=== PATIENT | female | born 1965 | race Two or more races ===

== ENCOUNTER → 2024-05-08 | Outpatient (CLI) | payer MEDICARE, MEDICAID, SELFPAY ==
[2024-05-08 09:31] LABS: Misc Send Out* See Sep Rpt
== END | disposition home or self-care (01) ==
PROVIDERS: PCP Family Medicine; Referring Provider Internal Medicine Hematology & Oncology; Visit Provider Internal Medicine Hematology & Oncology
DX: C50.111 Malignant neoplasm of central portion of right female breast (principal)

== ENCOUNTER 2024-07-22 15:02 | Outpatient (RCR) | payer MEDICARE, MEDICAID, SELFPAY | END 2024-08-17 23:59 | disposition home or self-care (01) | LOC: SCTC 15:02 | PROVIDERS: PCP Physician Assistant; Referring Provider Physician Assistant; Visit Provider Internal Medicine Hematology & Oncology | DX: C50.111 Malignant neoplasm of central portion of right female breast (principal); Z17.0 Estrogen receptor positive status [ER+]; Z17.21 Progesterone receptor positive status; Z17.32 Human epidermal growth factor receptor 2 negative status; Z90.11 Acquired absence of right breast and nipple; Z92.21 Personal history of antineoplastic chemotherapy; Z92.3 Personal history of irradiation; Z79.810 Long term (current) use of selective estrogen receptor modulators (SERMs) | CPT/HCPCS: 99213; G0463 ==

== ENCOUNTER → 2024-10-02 | Outpatient (CLI) | payer MEDICARE, MEDICAID, SELFPAY ==
--- NOTE | 2024-10-02 14:00 | XR_ITS ---
Examination: MRI brain with intravenous contrast TECHNIQUE: Multiple axial sagittal coronal MRI brain images post intravenous administration 17 cc gadolinium Exam date and time: October 02, 2024 at 1425 hours INDICATIONS: Diagnosis malignant neoplasm central portion right female breast, patient has headaches numbness dizziness weakness in the legs beginning 2023 FINDINGS: Ventricles are not enlarged No mass effect upon the ventricular system No effacement cortical sulcal markings No midline shift of the ventricles No abnormal enhancing cerebellar or cerebral lesions Pituitary is not enlarged No pituitary macroadenoma IMPRESSION: No abnormal enhancing cerebellar or cerebral lesions
== END | disposition home or self-care (01) ==
LOC: SMRI 13:41
PROVIDERS: PCP Family Medicine; Referring Provider Internal Medicine Hematology & Oncology; Visit Provider Internal Medicine Hematology & Oncology
DX: C50.111 Malignant neoplasm of central portion of right female breast (principal)
CPT/HCPCS: 70552; A9579

== ENCOUNTER 2024-10-22 14:55 | Outpatient (RCR) | payer MEDICARE, MEDICAID, SELFPAY ==
--- NOTE | 2024-10-27 20:28 | CTCFLWUP_ITS ---
Patient: SHARONDA RIVERA : 1965 Page 5 of 6 FOLLOW UP NOTE DATE OF SERVICE: 10/22/2024 NAME: SHARONDA RIVERA ACCOUNT: [id number] : 1965 AGE: 58 INTERVAL HISTORY: ONCOLOGY HISTORY:?[facility] Hx? 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 S/p TCH chemotherapy in the adjuvant setting. 07/25/2019: Patient is started on antihormonal therapy. She was not able to tolerate anastrozole, Aromasin. Currently patient is on tamoxifen. Chronic low back pain with chronic generalized body aches. Currently under pain management around the clinic DATE OF DIAGNOSIS: 09/27/2018 STAGE/TNM: ER/MO positive HER2 positive TREATMENT HISTORY: Care?Plan Start?Date Cycle Day Intent Taxotere,?Carboplatin,?Trastuzumab 02/05/2019 1 21 Curative?(adjuvant) Trastuzumab?6?mg/kg? To?Finish?the?Year 08/08/2019 1 21 Curative?(adjuvant) HISTORY OF PRESENT ILLNESS: Sharonda Rivera is a 59-year-old SPA speaking female with following oncology history 09/05/2018: Patient had bilateral diagnostic digital mammograms. A 12 mm suspicious oval mass with indistinct margins was noted in the right breast. 823 mm, 14 mm well marginated nodules were noted in the left breast. 09/05/2018: Patient had bilateral breast ultrasounds. Left breast ultrasound showed a 2.3 x 2.0 cm solid nodule with lobular margins and another 1.4 x 1.3 cm adjacent solid nodule. Right breast ultrasound showed a 1.2 x 1.7 cm solid nodule with indistinct margins. 09/27/2018: Patient had ultrasound-guided percutaneous right breast retroareolar nodule biopsy. 11/02/2018: Left breast mass fine-needle aspiration was negative for malignancy. 12/05/2018: Right breast wire localized partial mastectomy with sentinel lymph node biopsy 01/03/2019: Margins were reexcised. Residual invasive ductal carcinoma was noted in the medial margin. Ductal carcinoma in situ was also noted. 01/17/2019: PET CT scan was requested. However she was not able to get it done due to chronic low back pain of 23 years duration. 01/30/2019: Echo?LVEF 55-60%. 02/05/2019? 06/13/2019: Patient had 6 cycles of adjuvant TCH chemotherapy. 07/15/2019?09/04/2019: Patient received 6300 cGy radiation to the right breast. 07/25/2019: Patient started on adjuvant anastrozole and Citracal. 02/05/2019?05/07/2020: Ms. Rivera completed total of 1 year of adjuvant Herceptin therapy. 09/26/2018: Anastrozole held due to myalgias and arthralgias and generalized body aches and bone pains. 10/10/2019: Joint pains did not improve after stopping the anastrozole. Patient was restarted on anastrozole. 10/24/2019: Anastrozole discontinued. Patient was started on Aromasin. 10/26/2019: PET CT scan? IMPRESSION: Hypermetabolic pulmonary nodule anterior right upper lobe, 29 x 19 mm. Hypermetabolic anterior right chest wall soft tissue masses, the largest 20 x 8 mm, SUV 2.67. The pulmonary nodule anterior right upper lobe is amenable to CT-guided biopsy as clinically warranted 12/10/2019: CT-guided biopsy of the anterior chest wall pleural-based mass. Pathology showed muscle and small fragments of adipose tissue. No evidence of malignancy. 12/17/2019:Aromasin was discontinued due to persistent body aches on. Patient was started on letrozole. 01/23/2020: Letrozole discontinued due to worsening body aches. 02/05/2020: Patient restarted Aromasin. 03/13/2020: PET CT scan? 08/25/2020: Bone density test? 10/29/2020: MRI of the brain? 09/03/2021: Aromasin discontinued due to worsening body aches as well as joint pains. Patient is started on tamoxifen 20 mg p.o. daily. 11/28/2020: PET CT scan?negative for metastatic disease. November 2020: According to Ms. Rivera she had colonoscopy done in [place]. The study was negative as per patient. 08/25/2021: Left breast biopsy? 01/05/2023: PET/CT scan? 05/14/2024: PET/CT scan?no interval metastatic disease. Para OTHER MEDICAL HISTORY/CONDITIONS: FAMILY HISTORY: ?Clone Family Hx? 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 Arimidex - 1 mg 1 tab Daily 2. gabapentin - 300 mg Three times a day 3. hydrocodone-acetaminophen - 1 tab Every 12 Hours 4. Ward - 1 tab Daily?Palabra Meds? Medications Last Reconciled by Jeana Tamayo MA on 10/22/2024 ALLERGIES: Sulfa (Sulfonamide Antibiotics) REVIEW OF SYSTEMS: A complete 14-point review of systems was performed and is negative except as noted in interval history. PHYSICAL EXAMINATION:?[facility] PE? VITAL SIGNS: Temperature?99, B/P?143/84, Oxygen?Saturation?96% Weight?199?lbs PAIN: 6 - Severe pain ECOG Performance Status: 0 - Asymptomatic and fully active Conjunctiva is pink. Neck is supple. No adenopathy palpable in the neck, axillary and inguinal region. Chest tenderness present in the right breast. CVS rhythm regular. Abdomen is soft. No hepatosplenomegaly noted. Extremities no clubbing or cyanosis. LABORATORY DATA: I have personally reviewed and interpreted each of the patient?s relevant lab tests, abnormal findings are below: Date 10/08/20 ??GLUCOSE,RANDOM?(mg/dL) 99 ??BLOOD?UREA?NITROGEN?(mg/dL) 9 ??CREATININE?(mg/dL) 0.70 ??SODIUM?(mmol/L) 140 ??POTASSIUM?(mmol/L) 3.4 ??CHLORIDE?(mmol/L) 108?H ??CrCl?(CandG)?(ml/min) 106.91 ??AST/SGOT?(Unit/L) 31 ??ALT/SGPT?(Unit/L) 31 ??ALKALINE?PHOSPHATASE?(Unit/L) 90 ??BILIRUBIN,?TOTAL?(mg/dL) 0.6 ??PROTEIN?TOTAL?(gm/dl) 7.2 ??ALBUMIN,?SERUM?(gm/dl) 4.8 ??GLOBULIN?(gm/dl) 2.4 ??ALBUMIN/GLOBULIN?RATIO 2.0 ??CALCIUM,?SERUM?(mg/dL) 9.6 ??CALCIUM?SERUM?(CORRECTED)?(mg/dL) 9.6 ASSESSMENT/PLAN:?Jared Angel Assessment/Plan? Stage IA (pT1C, N0, cM0), ER positive, MO positive, HER-2/jigna ER positive, MO positive, [id number] overexpressed'?iEh-grade single focus invasive ductal carcinoma of right breast. Patient had lumpectomy and sentinel lymph node biopsies. Status post 6 cycles of TCH chemotherapy and radiation therapy to the right breast. Patient completed adjuvant Herceptin therapy on 05/07/2020. PET/CT scan negative for metastatic disease. BRCA [address] [facility] hereditary cancer test were drawn recently. Results are pending. Currently the patient is on tamoxifen. 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 Patient had BRCA negative Recent mammogram and ultrasound reviewed with the patient and were both negative Will repeat in 6 months Advised lymphedema massage Patient has a very dry breast and advised to moisturize regularly Advised to take calcium and vitamin D3 Discussed with patient that anastrozole has shown better efficacy in preventing breast ancer Received tamoxifen for 3 years Patient was switched to anastrozole and tolerating well Patient have intact uterus and is at a high risk of endometrial hyperplasia Extensive counseling done regarding side effects Continue calcium and vitamin D3 1. ORDERS: Mammogram and DEXA scan RETURN TO CLINIC: I will see her back in the clinic in 6 month. Textage p , , clVlU), BILLING AND COMPLIANCE: I reviewed external records from providers outside my specialty as summarized above. I spent a total of 50 minutes on this patient?s care on the day of their visit excluding time spent related to any billed procedures. This time includes time spent with the patient as well as time spent documenting in the medical record, reviewing patients records and tests, obtaining history, placing orders, communicating with other healthcare professionals, counseling the patient, family or caregiver, and/or care coordination for the diagnoses above. Electronically Signed by: Ralph Angel MD T: 8:26 PM CC: PCP: Renan Plummer Referring: Renan Plummer This document was completed utilizing speech recognition software. Grammatical errors, random word insertions, pronoun errors, and incomplete sentences are an occasional consequence of this system due to software limitations, ambient noise, and hardware issues. Any formal questions or concerns about the content, text or information contained within the body of this dictation should be directly addressed to the provider for clarification.
== END 2024-11-15 23:59 | disposition home or self-care (01) ==
LOC: SCTC 14:55
PROVIDERS: PCP Family Medicine; Referring Provider Family Medicine; Visit Provider Nurse Practitioner Family
DX: C50.111 Malignant neoplasm of central portion of right female breast (principal); Z17.0 Estrogen receptor positive status [ER+]; Z17.21 Progesterone receptor positive status; Z17.32 Human epidermal growth factor receptor 2 negative status; Z90.11 Acquired absence of right breast and nipple; Z92.21 Personal history of antineoplastic chemotherapy; Z92.3 Personal history of irradiation; I89.0 Lymphedema, not elsewhere classified; Z79.811 Long term (current) use of aromatase inhibitors
CPT/HCPCS: 99212; G0463

== ENCOUNTER → 2025-06-25 | Outpatient (CLI) | payer MEDICARE, MEDICAID, SELFPAY ==
--- NOTE | 2025-06-25 11:00 | XR_ITS ---
Examination: Screening digital mammography, bilateral Computer aided detection 3-D breast Tomosynthesis, bilateral Date and time of exam: June, 11:01 a.m., compared to mammograms dated July 20, 2022 Indication: Screening Technique: Nonmagnified MLO, CC views of the breasts to been obtained, reconstructed from 3-D Tomosynthesis images. R2 computer aided detection program utilized for evaluation of suspicious masses and/or abnormal calcifications. 3-D Tomosynthesis images obtained. Findings: Scattered areas of fibroglandular density. Stable architectural distortion and surgical clips right breast Stable nodules with 1 breast biopsy marker upper left breast Impression: BI-RADS category II: Benign Findings. Recommend 1 year follow-up mammogram.
== END | disposition home or self-care (01) ==
LOC: CDIM 10:47
PROVIDERS: Referring Provider Internal Medicine Hematology & Oncology; Visit Provider Internal Medicine Hematology & Oncology
DX: Z12.31 Encounter for screening mammogram for malignant neoplasm of breast (principal); R92.323 Mammographic fibroglandular density, bilateral breasts; C50.111 Malignant neoplasm of central portion of right female breast
CPT/HCPCS: 77063; 77067

== ENCOUNTER → 2025-06-30 | Outpatient (CLI) | payer MEDICARE, MEDICAID, SELFPAY ==
--- NOTE | 2025-06-30 12:20 | XR_ITS ---
Examination: Bone densitometry Date and time of exam: June 30, 2025, 1211 hours INDICATIONS: Menopause age 53 vitamin D and calcium 5 years Technique: Lumbar spine and hip total bone mineralization values of an calculated. Peak reference and age match control results have been displayed. Findings: Lumbar spine total bone mineralization is 25 7 gm/cm2. This is 1.7 standard deviations below peak reference. This is 0.5 standard deviations below age-matched controls. Hip total bone mineralization is 0.878 gm/cm2 This is 0.6 standard deviations below peak reference. This is 0.2 standard deviations above age-matched controls Impression: There is osteopenia based on lumbar spine measurements. There is normal mineralization based on hip measurements Lumbar mineralization is decreased 6.0% compared with June 29, 2023 Hip mineralization is decreased 1.0% compared with June 29, 2023
== END | disposition home or self-care (01) ==
LOC: CDIM 11:48
PROVIDERS: Referring Provider Internal Medicine Hematology & Oncology; Visit Provider Internal Medicine Hematology & Oncology
DX: M85.89 Other specified disorders of bone density and structure, multiple sites (principal); C50.111 Malignant neoplasm of central portion of right female breast
CPT/HCPCS: 77080

== ENCOUNTER 2025-07-17 11:40 | Outpatient (RCR) | payer MEDICARE, MEDICAID, SELFPAY ==
--- NOTE | 2025-08-04 06:15 | CTCFLWUP_ITS ---
Patient: SHARONDA RIVERA : 1965 Page 5 of 7 FOLLOW UP NOTE DATE OF SERVICE: 07/17/2025 NAME: SHARONDA RIVERA ACCOUNT: [id number] : 1965 AGE: 59 INTERVAL HISTORY: Patient with a triple positive breast cancer. Patient had her bone density on 06/30/2025 which showed osteopenia in the lumbar spine and bone density has decreased in both lumbar spine and hips. Mammogram completed on 06/25/2020 was BI-RADS 2 and recommended follow-up in 1 year. Patient do not have any new complaints. She was unable to tolerate tamoxifen or anastrozole and is changed to exemestane at this visit. Patient is complaining of headache on and off. Ordered MRI to evaluate for metastatic disease ONCOLOGY HISTORY:?[facility] Hx? 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 S/p TCH chemotherapy in the adjuvant setting. 07/25/2019: Patient is started on antihormonal therapy. She was not able to tolerate anastrozole, Aromasin. Currently patient is on tamoxifen. Chronic low back pain with chronic generalized body aches. Currently under pain management . DATE OF DIAGNOSIS: 09/27/2018 STAGE/TNM: ER/MN positive HER2 positive TREATMENT HISTORY: Care?Plan Start?Date Cycle Day Intent Taxotere,?Carboplatin,?Trastuzumab 02/05/2019 1 21 Curative?(adjuvant) Trastuzumab?6?mg/kg? To?Finish?the?Year 08/08/2019 1 21 Curative?(adjuvant) HISTORY OF PRESENT ILLNESS: Sharonda Rivera is a 59-year-old SPA speaking female with following oncology history 09/05/2018: Patient had bilateral diagnostic digital mammograms. A 12 mm suspicious oval mass with indistinct margins was noted in the right breast. 823 mm, 14 mm well marginated nodules were noted in the left breast. 09/05/2018: Patient had bilateral breast ultrasounds. Left breast ultrasound showed a 2.3 x 2.0 cm solid nodule with lobular margins and another 1.4 x 1.3 cm adjacent solid nodule. Right breast ultrasound showed a 1.2 x 1.7 cm solid nodule with indistinct margins. 09/27/2018: Patient had ultrasound-guided percutaneous right breast retroareolar nodule biopsy. 11/02/2018: Left breast mass fine-needle aspiration was negative for malignancy. 12/05/2018: Right breast wire localized partial mastectomy with sentinel lymph node biopsy 01/03/2019: Margins were reexcised. Residual invasive ductal carcinoma was noted in the medial margin. Ductal carcinoma in situ was also noted. 01/17/2019: PET CT scan was requested. However she was not able to get it done due to chronic low back pain of 23 years duration. 01/30/2019: Echo?LVEF 55-60%. 02/05/2019? 06/13/2019: Patient had 6 cycles of adjuvant TCH chemotherapy. 07/15/2019?09/04/2019: Patient received 6300 cGy radiation to the right breast. 07/25/2019: Patient started on adjuvant anastrozole and Citracal. 02/05/2019?05/07/2020: Ms. Rivera completed total of 1 year of adjuvant Herceptin therapy. 09/26/2018: Anastrozole held due to myalgias and arthralgias and generalized body aches and bone pains. 10/10/2019: Joint pains did not improve after stopping the anastrozole. Patient was restarted on anastrozole. 10/24/2019: Anastrozole discontinued. Patient was started on Aromasin. 10/26/2019: PET CT scan? IMPRESSION: Hypermetabolic pulmonary nodule anterior right upper lobe, 29 x 19 mm. Hypermetabolic anterior right chest wall soft tissue masses, the largest 20 x 8 mm, SUV 2.67. The pulmonary nodule anterior right upper lobe is amenable to CT-guided biopsy as clinically warranted 12/10/2019: CT-guided biopsy of the anterior chest wall pleural-based mass. Pathology showed muscle and small fragments of adipose tissue. No evidence of malignancy. 12/17/2019:Aromasin was discontinued due to persistent body aches on. Patient was started on letrozole. 01/23/2020: Letrozole discontinued due to worsening body aches. 02/05/2020: Patient restarted Aromasin. 03/13/2020: PET CT scan? 08/25/2020: Bone density test? 10/29/2020: MRI of the brain? 09/03/2021: Aromasin discontinued due to worsening body aches as well as joint pains. Patient is started on tamoxifen 20 mg p.o. daily. 11/28/2020: PET CT scan?negative for metastatic disease. November 2020: According to Ms. Rivera she had colonoscopy done in [place]. The study was negative as per patient. 08/25/2021: Left breast biopsy? 01/05/2023: PET/CT scan? 05/14/2024: PET/CT scan?no interval metastatic disease. Para OTHER MEDICAL HISTORY/CONDITIONS: FAMILY HISTORY: ?Clone Family Hx? 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 exemestane - 25 mg 1 tab Daily 2. gabapentin - 300 mg Three times a day 3. hydrocodone-acetaminophen - 1 tab Every 12 Hours 4. Dudley - 1 tab Daily 5. ondansetron HCl - 8 mg 1 tab 1 tab can be taken every 8 hrs as needed for nause?Palabra Meds? Medications Last Reconciled by Jeana Rowley MD on 07/17/2025 ALLERGIES: Sulfa (Sulfonamide Antibiotics) REVIEW OF SYSTEMS: A complete 14-point review of systems was performed and is negative except as noted in interval history. PHYSICAL EXAMINATION:?[facility] PE? VITAL SIGNS: Temperature?98.5, B/P?148/81, Oxygen?Saturation?97% Weight?206?lbs PAIN: 0 - No pain Conjunctiva is pink. Neck is supple. No adenopathy palpable in the neck, axillary and inguinal region. Chest tenderness present in the right breast. CVS rhythm regular. Abdomen is soft. No hepatosplenomegaly noted. Extremities no clubbing or cyanosis. LABORATORY DATA: I have personally reviewed and interpreted each of the patient?s relevant lab tests, abnormal findings are below: Date 08/04/20 10/08/20 08/04/25 ??WHITE?BLOOD?COUNT?(Thou/mm3) ? ? 6.8 ??RED?BLOOD?COUNT?(Miln/mm3) ? ? 4.93 ??HEMOGLOBIN?(gm/dl) ? ? 14.8 ??HEMATOCRIT?(%) ? ? 42.1 ??PLATELET?COUNT?(Thou/mm3) ? ? 201 ??NEUTROPHILS?%,?AUTO?(%) ? ? 69 ??LYMPH?%,?AUTO?(%) ? ? 23 ??NEUTROPHILS,?AUTO?(Thou/mm3) ? ? 4.7 ??GLUCOSE,RANDOM?(mg/dL) 99 99 122?H ??BLOOD?UREA?NITROGEN?(mg/dL) 12 9 17 ??CREATININE?(mg/dL) 0.80 0.70 0.80 ??SODIUM?(mmol/L) 142 140 142 ??POTASSIUM?(mmol/L) 3.3?L 3.4 3.6 ??CHLORIDE?(mmol/L) 109?H 108?H 105 ??CrCl?(CandG)?(ml/min) 93.54 106.91 91.79 ??AST/SGOT?(Unit/L) 14 31 22 ??ALT/SGPT?(Unit/L) 10 31 26 ??ALKALINE?PHOSPHATASE?(Unit/L) 80 90 85 ??BILIRUBIN,?TOTAL?(mg/dL) 0.6 0.6 0.5 ??PROTEIN?TOTAL?(gm/dl) 6.8 7.2 6.9 ??ALBUMIN,?SERUM?(gm/dl) 4.7 4.8 4.9 ??GLOBULIN?(gm/dl) 2.1?L 2.4 2.0?L ??ALBUMIN/GLOBULIN?RATIO 2.2 2.0 2.5?H ??CALCIUM,?SERUM?(mg/dL) 9.9 9.6 9.7 ??CALCIUM?SERUM?(CORRECTED)?(mg/dL) 9.9 9.6 9.7 ASSESSMENT/PLAN:?Jared Angel Assessment/Plan? Stage IA (pT1C, N0, cM0), ER positive, MN positive, HER-2/jigna ER positive, MN positive, [id number] overexpressed'?iEh-grade single focus invasive ductal carcinoma of right breast. Patient had lumpectomy and sentinel lymph node biopsies. Status post 6 cycles of TCH chemotherapy and radiation therapy to the right breast. Patient completed adjuvant Herceptin therapy on 05/07/2020. PET/CT scan negative for metastatic disease BRCA 1 and 2 and [facility] hereditary cancer test were drawn recently. Results are pending. Currently the patient is on tamoxifen. 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 Patient had BRCA negative Recent mammogram and ultrasound reviewed with the patient and were both negative Will repeat in 6 months Advised lymphedema massage Patient has a very dry breast and advised to moisturize regularly Advised to take calcium and vitamin D3 Was changed from tamoxifen to anastrozole but unable to hold it so switched to exemestane continue calcium and vitamin D3 As patient is complaining of headache will do MRI brain to evaluate for metastatic disease ORDERS: Order # Description [id number] Comprehensive Metabolic Panel - 12 + CBC with Auto Diff + MD Follow Up [id number] 3D Mammogram Screening + Bilateral [id number] DXA L-Spine and Hip [id number] MD Follow Up 4 Week [id number] MRI + Brain + With Contrast RETURN TO CLINIC: I reviewed the diagnosis, prognosis, and recommended treatment/procedure options with the patient (and/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 We also discussed the option of no treatment and the possibility of clinical trial participation, if applicable. All questions were addressed, and they demonstrated understanding. They provided informed consent to proceed with the proposed plan of care. BILLING AND COMPLIANCE: I reviewed external records from providers outside my specialty as summarized above. I spent a total of 50 minutes on this patient?s care on the day of their visit excluding time spent related to any billed procedures. This time includes time spent with the patient as well as time spent documenting in the medical record, reviewing patients records and tests, obtaining history, placing orders, communicating with other healthcare professionals, counseling the patient, family or caregiver, and/or care coordination for the diagnoses above. Electronically Signed by: Ralph Angel MD T: 6:13 AM CC: PCP: Renan Plummer Referring: Ralph Angel This document was completed utilizing speech recognition software. Grammatical errors, random word insertions, pronoun errors, and incomplete sentences are an occasional consequence of this system due to software limitations, ambient noise, and hardware issues. Any formal questions or concerns about the content, text or information contained within the body of this dictation should be directly addressed to the provider for clarification.
== END 2025-07-18 23:59 | disposition home or self-care (01) ==
LOC: SCTC 11:40
PROVIDERS: PCP Family Medicine; Referring Provider Internal Medicine Hematology & Oncology; Visit Provider Internal Medicine Hematology & Oncology
DX: C50.111 Malignant neoplasm of central portion of right female breast (principal); Z17.410 Hormone receptor positive with human epidermal growth factor receptor 2 positive status; Z90.11 Acquired absence of right breast and nipple; Z92.21 Personal history of antineoplastic chemotherapy; Z92.3 Personal history of irradiation; R51.9 Headache, unspecified; I89.0 Lymphedema, not elsewhere classified; Z79.811 Long term (current) use of aromatase inhibitors
CPT/HCPCS: 99212; G0463

== ENCOUNTER 2025-07-29 12:55 | Emergency (ER) | payer MEDICARE, MEDICAID, SELFPAY ==
[2025-07-29 13:09] VITALS: BP 145/85; PULSE 71; RESP 18; TEMP 36.8; O2SAT 96; BMI 31.0
--- NOTE | 2025-07-29 13:31 | XR_ITS ---
Examination: Foot, right, 3 views Technique: AP, oblique, lateral views foot, 3 views Date and time of exam: July 29, 2025, 1336 hours INDICATION: Right foot pain 3 months FINDINGS: Mild narrowing first metatarsophalangeal joint No fracture Mild osteoarthritis interphalangeal joint first digit No cortical bone destruction Small plantar posterior bony calcaneal spurs IMPRESSION: Mild osteoarthritis first digit Small plantar posterior bony calcaneal spurs
--- NOTE | 2025-07-29 13:31 | XR_ITS ---
Examination: Duplex scan of the lower extremity, unilateral right Date and time of exam: July 29, 2025, 1350 hours INDICATIONS: Right leg pain beginning 3 months ago Technique: Duplex scan of the extremity veins using B-mode/grayscale imaging and Doppler spectral analysis and color flow Attention is directed to internal echogenicity, compression and augmentation involving these veins, color flow assessment, spectral analysis Findings: Major deep venous structures in the extremity demonstrate normal course and caliber. There is no evidence of deep vein thrombosis. Normal color flow and spectral analysis Impression: Negative for DVT..
[2025-07-29] MEDS: KETOROLAC INJ 30 MG/ML VIAL IM (14:02)
--- NOTE | 2025-07-29 15:38 | EDNOTE_ITS ---
<Statement entered by Caron Pimentel MD - 07/29/25 16:28> As co-signing physician, I was present and available for consult prn. I concur with the plan and care as documented by the midlevel provider. Lower Extremity Injury RME/HPI General Chief Complaint: Extremity Injury, Lower Stated Complaint: right lower leg pain x 3 months worse every day Time Seen by Provider: 07/29/25 13:23 Arrival date/time: 07/29/25 12:55 59-year-old female presents to the Emergency Department for complaints of right heel pain patient reports onset of symptoms approximate 3 months ago patient reports no fever nausea or vomiting no swelling of extremity Limitations: no limitations Related Data Home Medications ?Medication ?Instructions ?Recorded ?Confirmed escitalopram oxalate 10 mg tablet 10 mg PO QDAY 12/10/19 (Lexapro) exemestane 25 mg tablet 25 mg PO 12/09/19 gabapentin 100 mg capsule 100 mg PO TID 12/09/1912/09 Previous Rx's ?Medication ?Instructions ?Recorded hydrocodone 5 mg-acetaminophen 325 1 tab PO Q6H PRN pa in (scale score 04/20/19 mg tablet ([place]) 7-10) #15 tabs cyclobenzaprine 5 mg tablet 5 mg PO TID PRN muscle spa sm #21 09/19/21 tabs ibuprofen 800 mg tablet 800 mg PO TID PRN pain #30 t abs 09/19/21 methylprednisolone 4 mg tablets in 4 mg PO QDAY #21 ta bs 09/19/21 a dose pack (Medrol (Zhao)) meloxicam 7.5 mg tablet 7.5 mg PO QDAY 7 days #7 tab s 07/29/25 Allergies Allergy/AdvReac Type Severity Reaction Status Date / Time sulfamethoxazole (From Allergy Intermediate Swelling Verified 07/29/25 13:02 Bactrim) of Lip/Tongue/Throat trimethoprim (From Bactrim) Allergy Intermediate Swelling Verified 07/29/25 13:02 of Lip/Tongue/Throat Review of Systems Review of Systems Systems Reviewed: All systems reviewed, normal except as documented Constitutional Constitutional: Reports system reviewed and no additional complaints, except as documented, Denies fever(s) and Denies headache(s) Eyes Eyes: Reports system reviewed and no additional complaints, except as documented and Denies blurry vision ENT Ears, Nose, Mouth, and Throat: Reports system reviewed and no additional complaints, except as documented, Denies headache(s), Denies nasal congestion and Denies nasal discharge Cardiovascular Cardiovascular: Reports system reviewed and no additional complaints, except as documented, Denies chest pain and Denies dyspnea Respiratory Respiratory: Reports system reviewed and no additional complaints, except as documented, Denies chest congestion, Denies cough and Denies dyspnea Gastrointestinal Gastrointestinal: Reports system reviewed and no additional complaints, except as documented and Denies abdominal pain Musculoskeletal Musculoskeletal: Reports system reviewed and no additional complaints, except as documented, Reports abnormal gait, Reports arthralgias, Denies deformity, Denies numbness, Reports stiffness and Denies tingling Integumentary/Breasts Skin/Breast: Reports system reviewed and no additional complaints, except as documented and Denies rash Neurologic Neurologic: Reports system reviewed and no additional complaints, except as documented, Reports as per HPI, Reports abnormal gait, Denies headache(s), Denies numbness and Denies tingling Past Medical History Past Medical History NEUROLOGIC: Negative Neurological Disorders or Seizures CARDIAC: Negative Cardiac Disorders, Congestive Heart Failure, Hypertension or Hypotension RESPIRATORY: Negative Chronic Obstructive Pulmonary Disease (COPD), Asthma or Bronchitis GASTROINTESTINAL: Positive Gastrointestinal Disorders, Pancreatitis and Gall Bladder Disease (CHOLECYSTECTOMY 2017); Negative Colorectal Cancer GENITOURINARY: Positive Genitourinary Disorders (UTI(08/2019)); Negative Renal Disease REPRODUCTIVE: Positive Breast Cancer (09/2018) and Previous Pregnancies () MUSCULOSKELETAL: Positive Musculoskeletal Disorders and Arthritis; Negative Bone Cancer or Carpal Tunnel Syndrome ENDOCRINE: Negative Endocrine Disorders, Diabetes Mellitus Type 1 or Diabetes Mellitus Type 2 HEMATOLOGIC: Positive Blood Disorders and Anemia (DURING CHEMO-RECEIVED IRON SUPPLEMENTS); Negative Sickle Cell Disease PSYCHO/SOCIAL: Positive Depression OTHER HISTORY: Positive Hospitalization, Chemotherapy, Radiation Therapy and Breast Cancer (09/2018); Negative Autoimmune Disease, Falls, Blood Transfusions, Blood Transfusion Reaction, Anesthesia Reactions, Organ Transplant, MRSA, VRSA, Clostridium Difficile, Cervical Cancer, Colorectal Cancer, Lung Cancer or Ovarian Cancer Family History FAMILY HISTORY: Positive Family Cardiac Disorders (FATHER) and Family Cancer (FATHER(PROSTATE)); Negative Family Psychiatric Problems, Family Respiratory Disorders, Family Soham rointestinal Problems, Family Surgery or Family Anesthesia Reaction Surgical History SURGICAL: Positive Lumpectomy (RIGHT BREAST) and Section (X3); Negative Cardiac Surgery, Endocrine Surgery, Ear Surgery, Joint Replacement, Amputation, Open Reduction Internal Fixation, Arthroscopy, Neurologic Surgery, Tubal Ligation or Organ Transplant Social History SMOKING STATUS: Never smoker ED Exam General Limitations: Present no limitations General appearance: Present alert and in no apparent distress Head Head exam: Present atraumatic, normocephalic and normal inspection Eye Eye exam: Present normal appearance, PERRL and EOMI; Absent conjunctival injection ENT ENT exam: Present normal exam, normal oropharynx and mucous membranes moist Neck Neck exam: Present normal inspection, full ROM and trachea midline Chest Chest inspection: Present normal inspection and symmetric chest wall rise Respiratory Respiratory exam: Present normal lung sounds bilaterally Cardiovascular Cardiovascular exam: Present regular rate, normal rhythm and normal heart sounds Abdominal Exam Abdominal exam: Present soft and normal bowel sounds Extremities Exam Extremities exam: Present normal inspection, full ROM, tenderness and normal capillary refill; Absent pedal edema, joint swelling or calf tenderness Back Exam Back exam: Present normal inspection and full ROM Neurological Exam Neurological exam: Present alert, oriented X3 and CN II-XII intact Psychiatric Psychiatric exam: Present normal affect and normal mood Skin Skin exam: Present warm, dry, intact and normal color Course Quality Measures none Orders Category Date Time Status US venous doppler LE RT Stat Exams 07/29/25 13:31 Completed XR foot comp RT min 3V Stat Exams 07/29/25 13:31 Completed Ketorolac Inj [Toradol Inj] Med 07/29/25 13:31 Discontinued 30 mg IM X1 ONE Vital Signs Vital signs: Vital Signs Temperature 98.2 F 07/29/25 13:09 Pulse Rate 71 07/29/25 13:09 Respiratory Rate 18 07/29/25 13:09 Blood Pressure 145/85 H 07/29/25 13:09 Pulse Oximetry (%) 96 07/29/25 13:09 Oxygen Delivery Method Room Air 07/29/25 13:09 O2 saturation 96% on room air within normal limits Extremity Injury, Lower MDM Narrative MDM Narrative:: 59-year-old female presents to the Emergency Department for complaints of right heel pain patient reports onset of symptoms approximate 3 months ago patient reports no fever nausea or vomiting no swelling of extremity on exam patient well-appearing patient does not appear ill or toxic no acute distress Imaging obtained patient has calcaneal spur as well as osteoarthritis of the foot consistent with patient's pain Ultrasound of the extremities obtained no acute emergent findings noted Patient data External records reviewed:: [facility] previous records Clinical information provided by:: patient Social determinants that could affect healthcare access:: none Patient has the following chronic illnesses:: None How is presenting disease/condition affected by chronic disease/condition?: no chronic disease Evaluation data The following diagnostics were reviewed and interpreted by me:: radiology exam(s) Lab and/or radiology exams considered but not ordered:: Radiology obtained Interpretation Summary: Reviewed by me Medications / Prescriptions Medications or Prescriptions considered but not ordered:: Given Medication administrations:: Medication Administration History Discontinued Medications Ketorolac Tromethamine (Ketorolac Inj 30 Mg/Ml Vial) 30 mg IM X1 ONE Stop: 07/29/25 13:32 Last Admin: 07/29/25 14:02 Dose: 30 mg Documented By: MF Given Consultations Consultation(s) initiated? (list below): No Diagnosis Extremity Injury, Lower Differential Diagnosis: other (Foot sprain, foot fracture) Most likely diagnosis given after review of the tests above:: Calcaneal spur Admission Indicated Admission indicated?: not indicated Admission Request Was there a request for admission?: No Disposition Plan Disposition Plan: Discharge Discharge Attestation Discharge Attestation: The patient and all family members were given an opportunity to ask questions and understood the discharge instructions. Discharge instructions specifically effects, indications for sooner follow up or return to the emergency department, and the expected course of current diagnosis. Patient condition: Stable Discharge Plan Plan Patient Disposition: HOME (Self Care) Discharge Disposition comment: Stable Prescriptions/Referrals Prescriptions/Med Rec: New meloxicam 7.5 mg tablet 7.5 mg PO QDAY 7 Days Qty: 7 0RF No Action gabapentin 100 mg Capsule 100 mg PO TID escitalopram oxalate [Lexapro] 10 mg Tablet 10 mg PO QDAY exemestane 25 mg Tablet 25 mg PO hydrocodone-acetaminophen [[place]] 5-325 mg tablet 1 tab PO Q6H MDD 4 tabs PRN (Reason: pain (scale score 7-10)) Qty: 15 0RF cyclobenzaprine 5 mg tablet 5 mg PO TID PRN (Reason: muscle spasm) Qty: 21 0RF ibuprofen 800 mg tablet 800 mg PO TID PRN (Reason: pain) Qty: 30 0RF methylprednisolone [Medrol (Zhao)] 4 mg tablets,dose pack 4 mg PO QDAY Qty: 21 0RF Referrals: Renan Plummer MD [Primary Care Provider, Family Practice] - In 1 week Problem List Clinical Impression: Calcaneal spur, right, Osteoarthritis of foot, right Patient/Caregiver Discharge Instructions Education Materials: ED Heel Spur Additional Instructions: Please follow up with your primary care doctor in the next 24-48hrs for any worsening symptoms return here immediately Print Language: Hungarian Stand Alone Forms: Ana Award Info., Patient Portal Info Letter PA/FITNESS PROFESSIONAL Supervising Physician PA/FITNESS PROFESSIONAL Supervising Physician: Dr. pimentel
== END 2025-07-29 17:15 | disposition home or self-care (01) ==
PROVIDERS: Emergency Provider Emergency Medicine; PCP Family Medicine
DX: M77.31 Calcaneal spur, right foot (principal); M19.071 Primary osteoarthritis, right ankle and foot
CPT/HCPCS: 73630; 93971; 96372; 99283; J1885

== ENCOUNTER 2025-08-04 04:42 | Emergency (ER) | payer MEDICARE, MEDICAID, SELFPAY ==
[2025-08-04 04:48] VITALS: BP 145/103; PULSE 85; RESP 18; TEMP 36.5; O2SAT 98; BMI 31.3
--- NOTE | 2025-08-04 04:51 | XR_ITS ---
Examination: CT abdomen and pelvis without contrast. Coronal 3-D reconstructions. Sagittal 2-D reconstructions. Date and time of exam: August 04, 2025, 0507 hours, comparison PET/CT scan January 05, 2023 INDICATIONS: Epigastric pain abdominal pain nausea today CTDI: vol (mGy): 10 DLP: (mGycm): 662 Technique: Axial images of the abdomen have been obtained, 3 mm slice thickness Intravenous contrast material has not been administered. Low dose protocols were performed. One or more of the following dose reduction techniques were used; automated exposure control, adjustment of the mA and/or KV according to patient size, use of iterative reconstruction technique. Findings: Surgical clips with density in the right breast retroareolar with skin thickening right breast No axillary lymphadenopathy No liver or splenic lesion No pancreatic or adrenal mass Mild to moderate renal scarring, no renal or ureteral calculi, no hydronephrosis Aortic calcification no aneurysmal dilatation. Normal appendix Tiny fat-containing umbilical hernia Scattered colonic diverticulosis, no diverticulitis No pelvic mass Moderate osteopenia IMPRESSION: No acute process in the abdomen or pelvis
--- NOTE | 2025-08-04 04:52 | PD.EDRME ---
Rapid Medical Screening Exam RME Arrival date/time: 08/04/25 04:42 This is a case of 59-year-old female with history of breast cancer and cholecystectomy came in in the emergency room due to abdominal pain radiating to her chest today worsening of the symptoms this patient decided to sought consult here in the emergency room Chief Complaint: Abdominal Pain Time Seen by Provider: 08/04/25 04:51 Vital signs: Vital Signs Temperature 97.7 F 08/04/25 04:48 Pulse Rate 85 08/04/25 04:48 Respiratory Rate 18 08/04/25 04:48 Blood Pressure 145/103 H 08/04/25 04:48 Pulse Oximetry (%) 98 08/04/25 04:48 Oxygen Delivery Method Room Air 08/04/25 04:48 Exam: Abdominal tenderness epigastric area no guarding no rebound no rigidity normal rate regular rhythm no murmur clear with clear breath sounds Clinical Impression: Abdominal pain
[2025-08-04 05:08] LABS: Basophils # (Auto) 0.0 Thou/mm3 (0.0-0.2); Basophils % (Auto) 0 % (0-2.5); Eosinophils # (Auto) 0.1 Thou/mm3 (0.0-0.5); Eosinophils % (Auto) 1 % (0-10); Hematocrit 42.1 % (36.0-46.0); Hemoglobin 14.8 g/dL (12.0-16.0); Immature Granulocytes Auto 0.05 Thou/mm3 (0.00-0.00); Lymphocytes # (Auto) 1.6 Thou/mm3 (1.0-4.8); Lymphocytes % (Auto) 23 % (10-50); Mean Corpuscular HGB Conc 35.2 g/dl (31.0-37.0); Mean Corpuscular Hemoglobin 30.0 pg (25.0-35.0); Mean Corpuscular Volume 85 fL (80-100); Monocytes # (Auto) 0.4 Thou/mm3 (0.0-0.8); Monocytes % (Auto) 6 % (0-12); Neutrophils # (Auto) 4.7 Thou/mm3 (1.8-7.7); Neutrophils % (Auto) 69 % (37-80); Nucleated Red Blood Cell # 0.00 Thou/mm3 (0.00-0.00); Nucleated Red Blood Cell % 0 /100 WBC (0); Platelet Count 201 Thou/mm3 (140-440); RDW Standard Deviation 38.7 fL (36.4-46.3); Red Blood Count 4.93 Miln/mm3 (4.00-5.20); White Blood Count 6.8 Thou/mm3 (3.6-11.0)
[2025-08-04 05:27] LABS: Alanine Aminotransferase 26 U/L (10-49); Albumin, Serum 4.9 gm/dL (3.5-5.0); Albumin/Globulin Ratio 2.5 (1.2-2.2); Alkaline Phosphatase 85 U/L (46-116); Anion Gap 11 (7-16); Aspartate Amino Transferase 22 U/L (0-34); BUN/Creatinine Ratio 21 Ratio (12-20); Bilirubin,Total 0.5 mg/dL (0.3-1.2); Blood Urea Nitrogen 17 mg/dL (9-23); Calcium 9.7 mg/dL (8.3-10.6); Calcium (Corrected) 9.7 mg/dL (8.5-10.1); Carbon Dioxide 26.3 mMol/L (20.0-31.0); Chloride 105 mMol/L (98-107); Creatinine (Component) 0.8 mg/dL (0.6-1.3); Estimated Creatinine Clearance 92.7 mL/min (>60); Globulin 2.0 gm/dL (2.3-3.5); Glucose 122 mg/dL (74-106); Lipase 44 U/L (12-53); Osmolality,Calculated 285 (275-295); Potassium 3.6 mMol/L (3.4-5.1); Sodium 142 mMol/L (136-145); Total Protein 6.9 gm/dL (5.7-8.2); Troponin I < 0.020 ng/mL (0.0-0.045); eGFR > 60 See Note
[2025-08-04 05:36] LABS: Collection Type, Urine Clean Catch
[2025-08-04 05:40] LABS: Bilirubin,Urine Negative (Negative); Blood,Urine Negative (Negative); Clarity,Urine Clear (Clear/Hazy); Color,Urine Lt-Yellow (Lt Yel-Yel); Glucose, Urine Negative (Negative); Ketones,Urine Negative (Negative); Leukocyte Esterase,Urine Positive (Negative); Nitrite,Urine Negative (Negative); PH,Urine 6.5 (5.0-7.0); Protein,Urine Negative (Neg - Trace); RBC,Urine 1 /hpf (0-3); Specific Gravity,Urine 1.019 (1.001-1.035); Squamous Epithelial Cell,Urine 1 /hpf (0-5); Urobilinogen,Urine 2.0 mg/dL (0.0-1.0); WBC,Urine 4 /hpf (0-5)
--- NOTE | 2025-08-04 06:04 | PRELIM_ITS ---
CT scan of the abdomen and pelvis without intravenous contrast (axial sections with sagittal and coronal reformats) August 04, 2025 at 0507 hours Clinical History: Abdominal pain. Comparison: CT of April 22, 2019. Findings: The lung bases are clear. The liver, pancreas, spleen, kidneys and adrenals are unremarkable on this noncontrast study. Status postcholecystectomy. No evidence of bowel obstruction. The appendix is within normal limits. Diverticulosis of the colon. The uterus and ovaries are within normal limits. There is no mesenteric or retroperitoneal adenopathy. The urinary bladder is nondistended, limited evaluation. There is no free fluid or free air. The osseous structures are unremarkable. Fecal loading. The uterus and ovaries are within normal limits. Impression: 1. Fecal loading. 2. No evidence of kidney or ureteral stones. Report Electronically Signed By: Wes Sebastian 08/04/2025 6:03:59 AM [EST]
[2025-08-04 06:20] VITALS: BP 170/109; PULSE 68; RESP 18; TEMP 36.5; O2SAT 99
[2025-08-04] MEDS: SODIUM CHLORIDE 0.9% 1000 ML 1,000 ML 999 ML IV (06:31)
[2025-08-04] MEDS: KETOROLAC INJ 30 MG/ML VIAL IVP (06:31)
[2025-08-04] MEDS: FAMOTIDINE INJ 10 MG/ML VIAL 2 ML 20 MG IVP (06:31)
[2025-08-04] MEDS: MORPHINE SULF INJ 4 MG/ML VIAL IV (06:32)
[2025-08-04] MEDS: ONDANSETRON INJ 2 MG/ML INJ 2 ML 4 MG IVP (06:32)
[2025-08-04 07:01] VITALS: BP 175/79; PULSE 57; RESP 14; TEMP 36.6; O2SAT 96
--- NOTE | 2025-08-04 07:01 | PD.EDABDPN ---
ED Abdominal Pain RME/HPI General Chief Complaint: Abdominal Pain Stated complaint: EPIGASTRIC PAIN Time seen by provider: 08/04/25 04:51 Arrival date/time: 08/04/25 04:42 RME / HPI RME / HPI narrative: 08/04/25 04:42 This is a case of 59-year-old female with history of breast cancer and cholecystectomy came in in the emergency room due to abdominal pain radiating to her chest today worsening of the symptoms this patient decided to sought consult here in the emergency room Exam: Abdominal tenderness epigastric area no guarding no rebound no rigidity normal rate regular rhythm no murmur clear with clear breath sounds Impression: Abdominal pain Related Data Home Medications ?Medication ?Instructions ?Recorded ?Confirmed escitalopram oxalate 10 mg tablet 10 mg PO QDAY 12/09/19 12/10/19 (Lexapro) exemestane 25 mg tablet 25 mg PO 12/09/19 gabapentin 100 mg capsule 100 mg PO TID 12/09/19 12/10/19 Previous Rx's ?Medication ?Instructions ?Recorded hydrocodone 5 mg-acetaminophen 325 1 tab PO Q6H PRN pain (scale score 04/20/ mg tablet ([place]) 7-10) #15 tabs cyclobenzaprine 5 mg tablet 5 mg PO TID PRN muscle spasm #21 09/19/21 tabs ibuprofen 800 mg tablet 800 mg PO TID PRN pain #30 tabs 09/19/21 methylprednisolone 4 mg tablets in 4 mg PO QDAY #21 tabs 09/19/21 a dose pack (Medrol (Zhao)) meloxicam 7.5 mg tablet 7.5 mg PO QDAY 7 days #7 tabs 07/29/25 acetaminophen 300 mg-codeine 30 mg 2 tab PO Q8H PRN pain #20 tabs 08/04/25 tablet famotidine 40 mg tablet 40 mg PO .bedtime #30 tabs 08/04/25 omeprazole 40 mg capsule,delayed 40 mg PO QDAY #30 caps 08/04/25 release ondansetron 4 mg disintegrating 4 mg PO TID PRN nausea and 08/04/25 tablet vomiting 30 days #10 tabs Allergies Allergy/AdvReac Type Severity Reaction Status Date / Time sulfamethoxazole (From Allergy Intermediate Swelling Verified 08/04/25 04:43 Bactrim) of Lip/Tongue/Throat trimethoprim (From Bactrim) Allergy Intermediate Swelling Verified 08/04/25 04:43 of Lip/Tongue/Throat Course Quality Measures none Orders Category Date Time Status EKG (ED ONLY) *Do not use* NOW Care 08/04/25 04:46 Completed Saline [Insert IV] NOW Care 08/04/25 06:[address] abdomen pelvis wo con Stat Exams 08/04/25 04:51 Taken EKG (ED Only) Stat Exams 08/04/25 04:46 Ordered CBC Stat Lab 08/04/25 05:00 Completed Comprehensive Metabolic Panel Stat Lab 08/04/25 05:00 Completed Lipase Stat Lab 08/04/25 05:00 Completed Troponin I Stat Lab 08/04/25 05:00 Completed Urinalysis Stat Lab 08/04/25 05:14 Completed Famotidine Inj [Pepcid Inj] Med 08/04/25 06:23 Discontinued 20 mg IVP X1 ONE Ketorolac Inj [Toradol Inj] Med 08/04/25 06:23 Discontinued 30 mg IVP X1 ONE Morphine* Inj Med 08/04/25 06:23 Discontinued 4 mg IV X1 ONE Ondansetron Inj [Zofran Inj] Med 08/04/25 06:23 Discontinued 4 mg IVP X1 ONE Pantoprazole Inj [Protonix Inj] Med 08/04/25 06:23 Discontinued 40 mg IVP X1 ONE Sodium Chloride 0.9% 1000 ml [Ns] 1,000 ml Med 08/04/25 06:23 Discontinued IV 999 mls/hr Vital Signs Vital signs: Vital Signs Temperature 97.7 F 08/04/25 04:48 Pulse Rate 85 08/04/25 04:48 Respiratory Rate 18 08/04/25 04:48 Blood Pressure 145/103 H 08/04/25 04:48 Pulse Oximetry (%) 98 08/04/25 04:48 Oxygen Delivery Method Room Air 08/04/25 04:48 Abdominal Pain MDM MDM Narrative MDM Narrative:: This section includes all my notes and documentations, including HPI, PE, and ED course. Patrick Foley MD HPI: 59-year-old female here with severe upper abdominal pain and nausea for the past few hours. Had cholecystectomy in the past. No other complaints. ROS: All negative except as documented in HPI. Physical Exam: General: Alert and oriented. In obvious pain. Eyes: Conjunctivae and lids clear. ENT: No nasal congestion. Neck: Supple. Heart: RRR. Lungs: No respiratory distress. Good air movement. No rhonchi, wheezing, rales. Abdomen: Soft with upper quadrant tenderness. Normal bowel sounds. No distension. No rebound or guarding. Back: No CVA tenderness. Skin: Warm and dry. Neuro: Alert and oriented X 3. I reviewed all diagnostic test results: My review of the abdominal CT report is NAD. Blood tests and urine tests unremarkable. At this point, diagnoses include: Stomach ulcer Treatment here included: IVF Zofran 4 mg IV Famotidine 20 mg IV Protonix 40 mg IV Toradol 30 mg IV Morphine 4 mg IV Significant improvement noted. Recommended more outpatient workup. Based on my best medical judgment, made decision no further evaluation or treatment indicated at this time. Patient understands and agrees to the discharge instructions customized and printed, see below. Discharge instructions from Dr. Foley: ?After evaluation, your symptoms are due to stomach ulcer (see attached handout).? There is no emergency such as appendicitis needing emergent surgery. ?To help heal the ulcer, take Omeprazole 40 mg every morning and Famotidine 40 mg at bedtime for a week then as needed. ?Zofran for nausea/vomiting.? Clear liquid diet for 24 hours.? Then slowly advance diet as tolerated. ?Avoid food and beverages that can trigger and worsen ulcers.? See attached handout. ?See a private doctor on 08/06/2025. To make sure there is no serious intra-abdominal condition, ask for help with more investigation not available here in the ER.? Such as EGD or scoping the stomach, colonoscopy or scoping the colon, and referral to see drain cleaner plumber. ?Seek immediate medical care with worsening or with any concerns. Instrucciones de maria r del Dr. Foley: ?Tras la evaluaci?n, romario s?ntomas se deben a senthil ?lcera estomacal (gladys folleto adjunto). No se trata de senthil emergencia, francesca apendicitis que requiera cirug?a urgente. ?Para ayudar a cicatrizar la ?lcera, tome omeprazol 40 mg cada ma?joann y famotidina 40 mg antes de acostarse nora senthil semana y, posteriormente, seg?n sea necesario. ?[place] Zofran para las n?useas y los v?mitos. Siga senthil dieta l?quida negar nora 24 horas. Luego, vaya introduciendo gradualmente nuevos alimentos seg?n barba tolerancia. ?Evite los alimentos y bebidas que puedan desencadenar o empeorar las ?lceras. Consulte el folleto adjunto. ?Consulte a un m?dico particular el 06/08/2025. Para descartar cualquier afecci?n intraabdominal grave, solicite pruebas adicionales que no est?n disponibles en urgencias, francesca senthil endoscopia digestiva maria r (RANDELL), senthil colonoscopia y senthil derivaci?n a un gastroenter?logo. ?Busque atenci?n m?dica inmediata si barba estado empeora o si tiene alguna inquietud. Patrick Foley MD Patient data External records reviewed:: [facility] previous records Clinical information provided by:: patient Social determinants that could affect healthcare access:: none Patient has the following chronic illnesses:: See chart How is presenting disease/condition affected by chronic disease/condition?: uneffected by Evaluation data The following diagnostics were reviewed and interpreted by me:: lab results and radiology exam(s) Lab and/or radiology exams considered but not ordered:: None Interpretation Summary: I reviewed all diagnostic test results: My review of the abdominal CT report is NAD. Blood tests and urine tests unremarkable. Medications / Prescriptions Medications or Prescriptions considered but not ordered:: None Medication administrations:: Medication Administration History Discontinued Medications Famotidine (Famotidine Inj 10 Mg/Ml Vial 2 Ml) 20 mg IVP X1 ONE Stop: 08/04/25 06:24 Last Admin: 08/04/25 06:31 Dose: 20 mg Documented By: DIANA Sodium Chloride (Ns) 1,000 mls @ 999 mls/hr IV .Q1H1M ONE Stop: 08/04/25 07:23 Last Infusion: 08/04/25 07:38 Dose: Infused Documented By: Admin: 08/04/25 06:31 Dose: 999 mls/hr Documented By: DIANA Ketorolac Tromethamine (Ketorolac Inj 30 Mg/Ml Vial) 30 mg IVP X1 ONE Stop: 08/04/25 06:24 Last Admin: 08/04/25 06:31 Dose: 30 mg Documented By: DIANA Morphine Sulfate (Morphine Sulf Inj 4 Mg/Ml Vial) 4 mg IV X1 ONE Stop: 08/04/25 06:24 Last Admin: 08/04/25 06:32 Dose: 4 mg Documented By: DIANA Ondansetron HCl (Ondansetron Inj 2 Mg/Ml Inj 2 Ml) 4 mg IVP X1 ONE; Protocol Stop: 08/04/25 06:24 Last Admin: 08/04/25 06:32 Dose: 4 mg Documented By: DIANA Pantoprazole Sodium (Pantoprazole Inj 40 Mg Vial) 40 mg IVP X1 ONE Stop: 08/04/25 06:24 Last Admin: 08/04/25 06:31 Dose: 40 mg Documented By: DIANA Treatment here included: IVF Zofran 4 mg IV Famotidine 20 mg IV Protonix 40 mg IV Toradol 30 mg IV Morphine 4 mg IV Consultations Consultation(s) initiated? (list below): No Diagnosis Differential diagnosis abdominal pain: acute appendicitis, calculus of kidney, constipation, diverticulitis, endometriosis, gastroenteritis, pancreatitis, small bowel obstruction and other (Biliary colic, gastritis, GERD, PUD) Most likely diagnosis given after review of the tests above:: PUD Admission Indicated Admission indicated?: not indicated Explain why admission is indicated or not indicated:: With significant improvement and no condition needing emergent intervention, there was no indication for admission. Admission Request Was there a request for admission?: No Disposition Plan Disposition Plan: Discharge Discharge Attestation Discharge Attestation: The patient and all family members were given an opportunity to ask questions and understood the discharge instructions. Discharge instructions specifically effects, indications for sooner follow up or return to the emergency department, and the expected course of current diagnosis. Patient condition: Stable Discharge Plan Plan Patient Disposition: HOME (Self Care) Prescriptions/Referrals Prescriptions/Med Rec: New famotidine 40 mg tablet 40 mg PO .bedtime Qty: 30 0RF acetaminophen-codeine 300-30 mg tablet 2 tab PO Q8H MDD 6 PRN (Reason: pain) Qty: 20 0RF omeprazole 40 mg capsule,delayed release(DR/EC) 40 mg PO QDAY Qty: 30 0RF ondansetron 4 mg tablet,disintegrating 4 mg PO TID PRN (Reason: nausea and vomiting) 30 Days Qty: 10 0RF No Action gabapentin 100 mg Capsule 100 mg PO TID escitalopram oxalate [Lexapro] 10 mg Tablet 10 mg PO QDAY exemestane 25 mg Tablet 25 mg PO hydrocodone-acetaminophen [[place]] 5-325 mg tablet 1 tab PO Q6H MDD 4 tabs PRN (Reason: pain (scale score 7-10)) Qty: 15 0RF cyclobenzaprine 5 mg tablet 5 mg PO TID PRN (Reason: muscle spasm) Qty: 21 0RF ibuprofen 800 mg tablet 800 mg PO TID PRN (Reason: pain) Qty: 30 0RF methylprednisolone [Medrol (Zhao)] 4 mg tablets,dose pack 4 mg PO QDAY Qty: 21 0RF meloxicam 7.5 mg tablet 7.5 mg PO QDAY 7 Days Qty: 7 0RF Referrals: Renan Plummer MD [Primary Care Provider, Family Practice] - In 1 week Problem List Clinical Impression: Stomach ulcer Patient/Caregiver Discharge Instructions Discharge Activity: activity as tolerated Education Materials: ED PEPTIC ULCER vs GASTRITIS Additional Instructions: Discharge instructions from Dr. Foley: ?After evaluation, your symptoms are due to stomach ulcer (see attached handout).? There is no emergency such as appendicitis needing emergent surgery. ?To help heal the ulcer, take Omeprazole 40 mg every morning and Famotidine 40 mg at bedtime for a week then as needed. ?Zofran for nausea/vomiting.? Clear liquid diet for 24 hours.? Then slowly advance diet as tolerated. ?Avoid food and beverages that can trigger and worsen ulcers.? See attached handout. ?See a private doctor on 08/06/2025. To make sure there is no serious intra-abdominal condition, ask for help with more investigation not available here in the ER.? Such as EGD or scoping the stomach, colonoscopy or scoping the colon, and referral to see drain cleaner plumber. ?Seek immediate medical care with worsening or with any concerns. Instrucciones de maria r del Dr. Foley: ?Tras la evaluaci?n, romario s?ntomas se deben a senthil ?lcera estomacal (gladys folleto adjunto). No se trata de senthil emergencia, francesca apendicitis que requiera cirug?a urgente. ?Para ayudar a cicatrizar la ?lcera, tome omeprazol 40 mg cada ma?joann y famotidina 40 mg antes de acostarse nora senthil semana y, posteriormente, seg?n sea necesario. ?[place] Zofran para las n?useas y los v?mitos. Siga senthil dieta l?quida negar nora 24 horas. Luego, vaya introduciendo gradualmente nuevos alimentos seg?n barba tolerancia. ?Evite los alimentos y bebidas que puedan desencadenar o empeorar las ?lceras. Consulte el folleto adjunto. ?Consulte a un m?dico particular el 06/08/2025. Para descartar cualquier afecci?n intraabdominal grave, solicite pruebas adicionales que no est?n disponibles en urgencias, francesca senthil endoscopia digestiva maria r (RANDELL), senthil colonoscopia y senthil derivaci?n a un gastroenter?logo. ?Busque atenci?n m?dica inmediata si barba estado empeora o si tiene alguna inquietud. Print Language: Lithuanian Stand Alone Forms: Ana Award Info., Patient Portal Info Letter
== END 2025-08-04 07:52 | disposition home or self-care (01) ==
PROVIDERS: Nurse Practitioner Family; Emergency Provider Emergency Medicine; PCP Family Medicine
DX: K25.9 Gastric ulcer, unspecified as acute or chronic, without hemorrhage or perforation (principal)
CPT/HCPCS: 36415; 74176; 80053; 81001; 83690; 84484; 85025; 93005; 96361; 96374; 96375; 99284; J1885; J2270; J2405; J2470; J3490; J7030

== ENCOUNTER → 2025-09-10 | Outpatient (CLI) | payer MEDICARE, MEDICAID, SELFPAY ==
--- NOTE | 2025-09-10 09:00 | XR_ITS ---
EXAMINATION: MRI brain with intravenous contrast Technique multiple axial sagittal and coronal brain MRI images post intravenous administration 18 cc gadolinium Date and time: September 10, 2025, 0944 hours, comparison October 02, 2024 INDICATIONS: Diagnosis malignant neoplasm of central portion of right female breast, headaches 6 months FINDINGS: Ventricles are normal in size and configuration No mass effect upon the ventricular system No effacement cortical sulci Fourth ventricle is midline No abnormal enhancing cerebellar or cerebral lesions IMPRESSION: No abnormal enhancing cerebellar or cerebral lesions
== END | disposition home or self-care (01) ==
PROVIDERS: PCP Physician Assistant; Referring Provider Internal Medicine Hematology & Oncology; Visit Provider Internal Medicine Hematology & Oncology
DX: R51.9 Headache, unspecified (principal); C50.111 Malignant neoplasm of central portion of right female breast
CPT/HCPCS: 70552; A9577